=== PATIENT | female | born 2000 | race Caucasian/White ===

== ENCOUNTER 2024-09-07 00:52 | Emergency (ER) | payer OTHER ==
--- OUTSIDE RECORDS SUMMARY | 2024-09-07 00:56 | XMS REPORT | Continuity of Care Document ---
Author Name Unknown Address [address] [facility] [address] [place] [address] [facility] Address [address] [facility] [address] [place] [address] Care Team Providers Care Incinerator Operator Name Role Phone Cristian Miranda Primary Care Physician Kim Foster Attending Clinician Unava ilable Cristian Miranda Attending Clinician [phone] Aristides Swann Attending Clinician [phone] ARISTIDES SANCHEZ Attending Clinician RAMESH Lucio Attending Clinician Unavailyasmin hernandez Doctor Unassigned, [place] Attending Clinician U MYAH Ch Attending Clinician Unavailable Saroj Myah RUBIO Attending Clinician + [phone] IRVIN COUCH Attending Clinician CHUY Krishnamurthy Attending Clinician CHUY Nguyen Attending Clinician GURMEET Hanson Attending Clinician Kim Harrell Admitting Clinician Unava ilable Payers Payer Name Policy Type Policy Number Effective Date Expirati on Date Source Problems Condition Name Condition Details Condition Category Status Onset Date Resolution Date Last Treatment Date Treating Clinician Comments Source PCOS (polycysti c ovarian syndrome) PCOS (polycysti c ovarian syndrome) Disease Active 6-13 00:00: 00 [facility] No known active problems No known active problems Disease [facility] Allergies, Adverse Reactions, Alerts Allergy Name Allergy Type Status Severity Reaction(s) Onset Date Inactive Date Treating Clinician Comments Source SULFA (SULFONA MIDE ANTIBIOT ICS) Drug Class Active Other-Cmnt 4-15 00:00: 00 [facility] Sulfa (Sulfona mide Antibiot ics) Drug Allergy Active Other - See comments -15 00:00: 00 [facility] ERYTHROM YCIN DRUG Active Hives 9-20 00:00: 00 [facility] Azithrom ycin Propensi ty to adverse reaction s Active Hives 0 9-20 00:00: 00 [facility] Erythrom ycin Propensi ty to adverse reaction s Active Hives 0 9-20 00:00: 00 [facility] AZITHROM YCIN DRUG INGREDI Active Hives 0 9-20 00:00: 00 [facility] NO KNOWN ALLERGIE S Drug Class Active [facility] Social History Social Habit Start Date Stop Date Quantity Comments [facility] 2024-01-13 00:00:00 2024-01-13 00:00:00 Ex-drinker (finding) [facility] History of Social function 2024-01-13 00:00:00 2024-01-13 00:00:00 [facility] Alcoholic beverage intake 2024-01-13 00:00:00 2024-01-13 00:00:00 Ex-drinker (finding) [facility] Exposure to SARS-CoV-2 (event) 2022-11-12 00:00:00 2022-11-22 14:28:00 Not sure [facility] Tobacco use and exposure 2022-11-12 00:00:00 2022-11-12 00:00:00 Smokeless tobacco non-user [facility] Sex assigned at 2000 00:00:00 2000 00:00:00 [facility] Smoking Status Start Date Stop Date Source Never smoked tobacco [facility] Medications Ordered Medication Name Filled Medication Name Start Date Stop Date Current Medication? Ordering Clinician Indication Dosage Frequency Signature (SIG) Comments Components Source SPIRONOLACT ONE 100 mg tablet 02-09 00:00: 00 Yes [id number] TAKE ONE TABLET BY MOUTH IN THE MORNING [facility] norgestimat e-ethinyl estradioL 0.25-35 mg-mcg per tablet 01-20 00:00: 00 Yes 1{tbl} Take 1 tablet by mouth in the morning. [facility] levonorgest rel-ethinyl estradiol 0.1-20 mg-mcg per tablet 01-12 00:00: 00 01-20 00:00 :00 No [id number] 1{tbl} Take 1 tablet by mouth in the morning. [facility] fluticasone propionate 50 mcg/actuati on nasal spray 11-11 00:00: 00 Yes [facility] predniSONE 20 mg tablet 11-11 00:00: 00 Yes [facility] buPROPion XL 150 mg 24 hr tablet 2022-09 00:00: 00 Yes [id number] Take 2 tablets po daily [facility] spironolact one 100 mg tablet 2022-09 00:00: 00 02-09 00:00 :00 No [id number] 100mg Take 1 tablet by mouth in the morning. [facility] spironolact one 100 mg tablet 11-22 00:00: 00 08-07 00:00 :00 No [id number] 100mg Take 1 tablet by mouth in the morning. [facility] buPROPion XL 150 mg 24 hr tablet 11-22 00:00: 00 08-07 00:00 :00 No [id number] Take 2 tablets po daily [facility] nystatin-tr iamcinolone cream 11-12 00:00: 00 Yes [id number] Apply to area(s) 2 (two) times daily. [facility] medroxyPROG ESTERone (PROVERA) 10 mg tablet 11-12 00:00: 00 11-23 05:59 :00 No [id number] 10mg Take 1 tablet by mouth in the morning for 10 days. [facility] cephALEXin 500 mg capsule 11-12 00:00: 00 11-20 05:59 :00 No [id number] 500mg Take 1 capsule by mouth 4 (four) times daily for 7 days. [facility] amoxicillin -clavulanat e 875-125 mg per tablet 10-29 00:00: 00 Yes 1{tbl} Take 1 tablet by mouth in the morning and 1 tablet in the evening. [facility] naproxen 500 mg tablet 10-29 00:00: 00 Yes 500mg Take 500 mg by mouth in the morning and 500 mg in the evening. [facility] buPROPion XL 150 mg 24 hr tablet 10-16 00:00: 00 11-22 00:00 :00 No [id number] Take 2 tablets po daily [facility] codeine-gua ifenesin 10-100 mg/5 mL oral solution 2021-09 00:00: 00 Yes TAKE ONE TEASPOONFU L BY MOUTH EVERY EIGHT HOURS NEEDED for cough. [facility] predniSONE 50 mg tablet 2021-09 00:00: 00 01-12 00:00 :00 No 50mg Take 50 mg by mouth in the morning. [facility] spironolact one 100 mg tablet 2021-09 00:00: 00 11-22 00:00 :00 No [id number] 100mg Take 1 tablet by mouth in the morning. [facility] buPROPion XL 150 mg 24 hr tablet 2021-09 00:00: 00 10-14 00:00 :00 No [id number] Take 2 tablets po daily [facility] buPROPion 100 mg tablet 06-19 13:35: 04 06-19 00:00 :00 No 100mg Take 100 mg by mouth in the morning and 100 mg in the evening. [facility] spironolact one 100 mg tablet 06-19 00:00: 00 09-10 00:00 :00 No [id number] 100mg Take 1 tablet by mouth in the morning. [facility] buPROPion SR 150 mg SR tablet 06-19 00:00: 00 07-20 04:59 :00 No [id number] 150mg Take 1 tablet by mouth in the morning and 1 tablet in the evening. Do all this for 30 days. [facility] spironolact one 100 mg tablet 05-21 00:00: 00 06-19 00:00 :00 No [facility] Immunizations Ordered Immunization Name Filled Immunization Name Date Status Comments Source HPV9 2022-06-19 00:00:00 Completed [facility] HPV9 2022-06-19 00:00:00 Completed [facility] 2022-06-19 00:00:00 Completed [facility] 2022-06-19 00:00:00 Completed [facility] 2022-06-19 00:00:00 Completed [facility] HPV9 2022-06-19 00:00:00 Completed [facility] 2022-06-19 00:00:00 Completed [facility] HPV9 2022-06-19 00:00:00 Completed [facility] HPV9 2022-06-19 00:00:00 Completed [facility] HPV9 2022-06-19 00:00:00 Completed [facility] HPV9 2022-06-19 00:00:00 Completed [facility] HPV9 2022-06-19 00:00:00 Completed [facility] HPV9 2020-12-12 00:00:00 Completed [facility] HPV9 2020-12-12 00:00:00 Completed [facility] HPV9 2020-12-12 00:00:00 Completed [facility] SARS-COV-2 COVID-19 VACCINE - (MODERNA) 2020-10-26 00:00:00 Completed [facility] SARS-COV-2 COVID-19 VACCINE - (MODERNA) 2020-10-26 00:00:00 Completed [facility] SARS-COV-2 COVID-19 VACCINE - (MODERNA) 2020-10-26 00:00:00 Completed [facility] SARS-COV-2 COVID-19 VACCINE - (MODERNA) 2020-09-28 00:00:00 Completed [facility] SARS-COV-2 COVID-19 VACCINE - (MODERNA) 2020-09-28 00:00:00 Completed [facility] SARS-COV-2 COVID-19 VACCINE - (MODERNA) 2020-09-28 00:00:00 Completed [facility] Flu Whole Virus 2013-07-15 00:00:00 Completed [facility] Flu Whole Virus 2013-07-15 00:00:00 Completed [facility] Flu Whole Virus 2013-07-15 00:00:00 Completed [facility] Varicella (varivax)(chicken pox) 2012-05-16 00:00:00 Completed [facility] Varicella (varivax)(chicken pox) 2012-05-16 00:00:00 Completed [facility] Varicella (varivax)(chicken pox) 2012-05-16 00:00:00 Completed [facility] Meningococcal Polysaccharide (groups A, C, Y and W-135) conjugate vaccine (MCV4P) 2011-05-07 00:00:00 Completed [facility] TDAP 2011-05-07 00:00:00 Completed [facility] Meningococcal Polysaccharide (groups A, C, Y and W-135) conjugate vaccine (MCV4P) 2011-05-07 00:00:00 Completed [facility] TDAP 2011-05-07 00:00:00 Completed [facility] Meningococcal Polysaccharide (groups A, C, Y and W-135) conjugate vaccine (MCV4P) 2011-05-07 00:00:00 Completed [facility] TDAP 2011-05-07 00:00:00 Completed [facility] DTaP, Unspecified Formulation 2004-11-09 00:00:00 Completed [facility] MMR 2004-11-09 00:00:00 Completed [facility] IPV 2004-11-09 00:00:00 Completed [facility] DTaP, Unspecified Formulation 2004-11-09 00:00:00 Completed [facility] MMR 2004-11-09 00:00:00 Completed [facility] IPV 2004-11-09 00:00:00 Completed [facility] DTaP, Unspecified Formulation 2004-11-09 00:00:00 Completed [facility] MMR 2004-11-09 00:00:00 Completed [facility] IPV 2004-11-09 00:00:00 Completed [facility] HEPATITIS A 2003-04-13 00:00:00 Completed [facility] HEPATITIS A 2003-04-13 00:00:00 Completed [facility] HEPATITIS A 2003-04-13 00:00:00 Completed [facility] HEPATITIS A 2002-03-10 00:00:00 Completed [facility] HEPATITIS A 2002-03-10 00:00:00 Completed [facility] HEPATITIS A 2002-03-10 00:00:00 Completed [facility] MMR 2000-12-10 00:00:00 Completed [facility] IPV 2000-12-10 00:00:00 Completed [facility] Varicella (varivax)(chicken pox) 2000-12-10 00:00:00 Completed [facility] MMR 2000-12-10 00:00:00 Completed [facility] IPV 2000-12-10 00:00:00 Completed [facility] Varicella (varivax)(chicken pox) 2000-12-10 00:00:00 Completed [facility] MMR 2000-12-10 00:00:00 Completed [facility] IPV 2000-12-10 00:00:00 Completed [facility] Varicella (varivax)(chicken pox) 2000-12-10 00:00:00 Completed [facility] Hep B, Adol or Pedi Dosage 2000-10-12 00:00:00 Completed [facility] Hep B, Adol or Pedi Dosage 2000-10-12 00:00:00 Completed [facility] Hep B, Adol or Pedi Dosage 2000-10-12 00:00:00 Completed [facility] DTP 2000-06-24 00:00:00 Completed [facility] Hep B, Adol or Pedi Dosage 2000-06-24 00:00:00 Completed [facility] HIB 3 Dose Schedule 2000-06-24 00:00:00 Completed [facility] DTP 2000-06-24 00:00:00 Completed [facility] Hep B, Adol or Pedi Dosage 2000-06-24 00:00:00 Completed [facility] HIB 3 Dose Schedule 2000-06-24 00:00:00 Completed [facility] DTP 2000-06-24 00:00:00 Completed [facility] Hep B, Adol or Pedi Dosage 2000-06-24 00:00:00 Completed [facility] HIB 3 Dose Schedule 2000-06-24 00:00:00 Completed [facility] DTP 2000-04-30 00:00:00 Completed [facility] HIB 3 Dose Schedule 2000-04-30 00:00:00 Completed [facility] IPV 2000-04-30 00:00:00 Completed [facility] DTP 2000-04-30 00:00:00 Completed [facility] HIB 3 Dose Schedule 2000-04-30 00:00:00 Completed [facility] IPV 2000-04-30 00:00:00 Completed [facility] DTP 2000-04-30 00:00:00 Completed [facility] HIB 3 Dose Schedule 2000-04-30 00:00:00 Completed [facility] IPV 2000-04-30 00:00:00 Completed [facility] DTP 2000-03-04 00:00:00 Completed [facility] HIB 3 Dose Schedule 2000-03-04 00:00:00 Completed [facility] IPV 2000-03-04 00:00:00 Completed [facility] DTP 2000-03-04 00:00:00 Completed [facility] HIB 3 Dose Schedule 2000-03-04 00:00:00 Completed [facility] IPV 2000-03-04 00:00:00 Completed [facility] DTP 2000-03-04 00:00:00 Completed [facility] HIB 3 Dose Schedule 2000-03-04 00:00:00 Completed [facility] IPV 2000-03-04 00:00:00 Completed [facility] Hep B, Adol or Pedi Dosage 1999 00:00:00 Completed [facility] Hep B, Adol or Pedi Dosage 1999 00:00:00 Completed [facility] Hep B, Adol or Pedi Dosage 1999 00:00:00 Completed [facility] HPV9 Unknown Completed [facility] SARS-COV-2 COVID-19 VACCINE - (MODERNA) Unknown Completed [facility] DTaP, Unspecified Formulation Unknown Completed [facility] DTP Unknown Completed [facility] Flu Whole Virus Unknown Completed [facility] HEPATITIS A Unknown Completed [facility] Hep B, Adol or Pedi Dosage Unknown Completed [facility] HIB 3 Dose Schedule Unknown Completed [facility] Meningococcal Polysaccharide (groups A, C, Y and W-135) conjugate vaccine (MCV4P) Unknown Completed [facility] MMR Unknown Completed [facility] IPV Unknown Completed [facility] TDAP Unknown Completed [facility] Varicella (varivax)(chicken pox) Unknown Completed [facility] HPV9 Unknown Completed [facility] SARS-COV-2 COVID-19 VACCINE - (MODERNA) Unknown Completed [facility] DTaP, Unspecified Formulation Unknown Completed [facility] DTP Unknown Completed [facility] Flu Whole Virus Unknown Completed [facility] HEPATITIS A Unknown Completed [facility] Hep B, Adol or Pedi Dosage Unknown Completed [facility] HIB 3 Dose Schedule Unknown Completed [facility] Meningococcal Polysaccharide (groups A, C, Y and W-135) conjugate vaccine (MCV4P) Unknown Completed [facility] MMR Unknown Completed [facility] IPV Unknown Completed [facility] TDAP Unknown Completed [facility] Varicella (varivax)(chicken pox) Unknown Completed [facility] HPV9 Unknown Completed [facility] SARS-COV-2 COVID-19 VACCINE - (MODERNA) Unknown Completed [facility] DTaP, Unspecified Formulation Unknown Completed [facility] DTP Unknown Completed [facility] Flu Whole Virus Unknown Completed [facility] HEPATITIS A Unknown Completed [facility] Hep B, Adol or Pedi Dosage Unknown Completed [facility] HIB 3 Dose Schedule Unknown Completed [facility] Meningococcal Polysaccharide (groups A, C, Y and W-135) conjugate vaccine (MCV4P) Unknown Completed [facility] MMR Unknown Completed [facility] IPV Unknown Completed [facility] TDAP Unknown Completed [facility] Varicella (varivax)(chicken pox) Unknown Completed [facility] HPV9 Unknown Completed [facility] SARS-COV-2 COVID-19 VACCINE - (MODERNA) Unknown Completed [facility] DTaP, Unspecified Formulation Unknown Completed [facility] DTP Unknown Completed [facility] Flu Whole Virus Unknown Completed [facility] HEPATITIS A Unknown Completed [facility] Hep B, Adol or Pedi Dosage Unknown Completed [facility] HIB 3 Dose Schedule Unknown Completed [facility] Meningococcal Polysaccharide (groups A, C, Y and W-135) conjugate vaccine (MCV4P) Unknown Completed [facility] MMR Unknown Completed [facility] IPV Unknown Completed [facility] TDAP Unknown Completed [facility] Varicella (varivax)(chicken pox) Unknown Completed [facility] HPV9 Unknown Completed [facility] SARS-COV-2 COVID-19 VACCINE - (MODERNA) Unknown Completed [facility] DTaP, Unspecified Formulation Unknown Completed [facility] DTP Unknown Completed [facility] Flu Whole Virus Unknown Completed [facility] HEPATITIS A Unknown Completed [facility] Hep B, Adol or Pedi Dosage Unknown Completed [facility] HIB 3 Dose Schedule Unknown Completed [facility] Meningococcal Polysaccharide (groups A, C, Y and W-135) conjugate vaccine (MCV4P) Unknown Completed [facility] MMR Unknown Completed [facility] IPV Unknown Completed [facility] TDAP Unknown Completed [facility] Varicella (varivax)(chicken pox) Unknown Completed [facility] HPV9 Unknown Completed [facility] SARS-COV-2 COVID-19 VACCINE - (MODERNA) Unknown Completed [facility] DTaP, Unspecified Formulation Unknown Completed [facility] DTP Unknown Completed [facility] Flu Whole Virus Unknown Completed [facility]PATITIS A [facility], Adol or Pedi Dosage Unknown Completed [facility] HIB 3 Dose Schedule Unknown Completed [facility] Meningococcal Polysaccharide (groups A, C, Y and W-135) conjugate vaccine (MCV4P) Unknown Completed [facility] MMR Unknown Completed [facility] IPV Unknown Completed [facility] TDAP Unknown Completed [facility] Varicella (varivax)(chicken pox) Unknown Completed [facility] HPV9 Unknown Completed [facility] SARS-COV-2 COVID-19 VACCINE - (MODERNA) Unknown Completed [facility] DTaP, Unspecified Formulation Unknown Completed [facility] DTP Unknown Completed [facility] Flu Whole Virus Unknown Completed [facility] HEPATITIS A Unknown Completed [facility] Hep B, Adol or Pedi Dosage Unknown Completed [facility] HIB 3 Dose Schedule Unknown Completed [facility] Meningococcal Polysaccharide (groups A, C, Y and W-135) conjugate vaccine (MCV4P) Unknown Completed [facility] MMR Unknown Completed [facility] IPV Unknown Completed [facility] TDAP Unknown Completed [facility] Varicella (varivax)(chicken pox) Unknown Completed [facility] HPV9 Unknown Completed [facility] SARS-COV-2 COVID-19 VACCINE - (MODERNA) Unknown Completed [facility] DTaP, Unspecified Formulation Unknown Completed [facility] DTP Unknown Completed [facility] Flu Whole Virus Unknown Completed [facility] HEPATITIS A Unknown Completed [facility] Hep B, Adol or Pedi Dosage Unknown Completed [facility] HIB 3 Dose Schedule Unknown Completed [facility] Meningococcal Polysaccharide (groups A, C, Y and W-135) conjugate vaccine (MCV4P) Unknown Completed [facility] MMR Unknown Completed [facility] IPV Unknown Completed [facility] TDAP Unknown Completed [facility] Varicella (varivax)(chicken pox) Unknown Completed [facility] HPV9 Unknown Completed [facility] SARS-COV-2 COVID-19 VACCINE - (MODERNA) Unknown Completed [facility] DTaP, Unspecified Formulation Unknown Completed [facility] DTP Unknown Completed [facility] Flu Whole Virus Unknown Completed [facility] HEPATITIS A Unknown Completed [facility] Hep B, Adol or Pedi Dosage Unknown Completed [facility] HIB 3 Dose Schedule Unknown Completed [facility] Meningococcal Polysaccharide (groups A, C, Y and W-135) conjugate vaccine (MCV4P) Unknown Completed [facility] MMR Unknown Completed [facility] IPV Unknown Completed [facility] TDAP Unknown Completed [facility] Varicella (varivax)(chicken pox) Unknown Completed [facility] HPV9 Unknown Completed [facility] SARS-COV-2 COVID-19 VACCINE - (MODERNA) Unknown Completed [facility] DTaP, Unspecified Formulation Unknown Completed [facility] DTP Unknown Completed [facility] Flu Whole Virus Unknown Completed [facility] HEPATITIS A Unknown Completed [facility] Hep B, Adol or Pedi Dosage Unknown Completed [facility] HIB 3 Dose Schedule Unknown Completed [facility] Meningococcal Polysaccharide (groups A, C, Y and W-135) conjugate vaccine (MCV4P) Unknown Completed [facility] MMR Unknown Completed [facility] IPV Unknown Completed [facility] TDAP Unknown Completed [facility] Varicella (varivax)(chicken pox) Unknown Completed [facility] Vital Signs Vital Name Observation Time Observation Value Comments S ource Systolic blood pressure 2024-01-13 18:03:00 116 mm[Hg] [facility] Diastolic blood pressure 2024-01-13 18:03:00 72 mm[Hg] [facility] Heart rate 2024-01-13 18:03:00 89 /min [facility] Body temperature 2024-01-13 18:03:00 37.33 Pily [facility] Body height 2024-01-13 18:03:00 167.6 cm [facility] Body weight 2024-01-13 18:03:00 56.019 [facility] BMI 2024-01-13 18:03:00 19.93 kg/m2 [facility] Systolic blood pressure 2022-11-22 20:34:00 102 mm[Hg] [facility] Diastolic blood pressure 2022-11-22 20:34:00 68 mm[Hg] [facility] Heart rate 2022-11-22 20:34:00 95 /min Un[facility] Body temperature 2022-11-22 20:34:00 36.33 Pily [facility] Respiratory rate 2022-11-22 20:34:00 18 /min [facility] Body height 2022-11-22 20:34:00 167.6 cm [facility] Body weight 2022-11-22 20:34:00 57.153 kg [facility] BMI 2022-11-22 20:34:00 20.34 kg/m2 [facility] Oxygen saturation in Arterial blood by Pulse oximetry 2022-11-22 20:34:00 95 /min [facility] Systolic blood pressure 2022-11-12 17:05:00 113 mm[Hg] [facility] Diastolic blood pressure 2022-11-12 17:05:00 74 mm[Hg] [facility] Heart rate 2022-11-12 17:05:00 106 /min [facility] Body temperature 2022-11-12 17:05:00 35.89 Pily [facility] Body height 2022-11-12 17:05:00 167.6 cm [facility] Body weight 2022-11-12 17:05:00 57.788 kg [facility] BMI 2022-11-12 17:05:00 20.56 kg/m2 [facility] Systolic blood pressure 2022-09-04 16:40:00 115 mm[Hg] [facility] Diastolic blood pressure 2022-09-04 16:40:00 64 mm[Hg] [facility] Heart rate 2022-09-04 16:40:00 74 /min [facility] Body temperature 2022-09-04 16:40:00 35.56 Pily [facility] Respiratory rate 2022-09-04 16:40:00 18 /min [facility] Body height 2022-09-04 16:40:00 91.4 cm [facility] Body weight 2022-09-04 16:40:00 58.514 kg [facility] BMI 2022-09-04 16:40:00 69.98 kg/m2 [facility] Oxygen saturation in Arterial blood by Pulse oximetry 2022-09-04 16:40:00 99 /min [facility] Systolic blood pressure 2022-08-02 19:01:00 100 mm[Hg] [facility] Diastolic blood pressure 2022-08-02 19:01:00 67 mm[Hg] [facility] Heart rate 2022-08-02 19:01:00 90 /min [facility] Body temperature 2022-08-02 19:01:00 35.94 Pily [facility] Respiratory rate 2022-08-02 19:01:00 18 /min [facility] Body weight 2022-08-02 19:01:00 60.328 kg [facility] Oxygen saturation in Arterial blood by Pulse oximetry 2022-08-02 19:01:00 98 /min [facility] Systolic blood pressure 2022-06-19 18:04:00 105 mm[Hg] [facility] Diastolic blood pressure 2022-06-19 18:04:00 69 mm[Hg] [facility] Heart rate 2022-06-19 18:04:00 85 /min [facility] Body temperature 2022-06-19 18:04:00 36.17 Pily [facility] Respiratory rate 2022-06-19 18:04:00 16 /min [facility] Body weight 2022-06-19 18:04:00 57.607 kg [facility] Oxygen saturation in Arterial blood by Pulse oximetry 2022-06-19 18:04:00 99 /min [facility] Systolic blood pressure 2022-09-04 16:40:00 115 mm[Hg] [facility] Diastolic blood pressure 2022-09-04 16:40:00 64 mm[Hg] [facility] Heart rate 2022-09-04 16:40:00 74 /min [facility] Body temperature 2022-09-04 16:40:00 35.56 Pily [facility] Respiratory rate 2022-09-04 16:40:00 18 /min [facility] Body height 2022-09-04 16:40:00 91.4 cm [facility] Body weight 2022-09-04 16:40:00 58.514 kg [facility] BMI 2022-09-04 16:40:00 69.98 kg/m2 [facility] Oxygen saturation in Arterial blood by Pulse oximetry 2022-09-04 16:40:00 99 /min [facility] Procedures Procedure Date / Time Performed Performing Clinician Source REFERRAL- REQUEST/RESPONSE 2023-09-01 06:01:00 Doctor Unassigned, [place] [facility] GALV ONLY - VAGINAL PATHOGENS BY NUCLEIC ACID TESTING 2022-11-12 23:17:00 Myah Kyle [facility] AUTHORIZATION FOR RELEASE OF PHI 2022-11-12 06:01:00 Doctor Unassigned, [place] [facility] PATIENT INFORMATION 2022-09-17 06:01:00 Doctor Unassigned, [place] [facility] PATIENT INFORMATION 2022-09-17 06:01:00 Doctor Unassigned, [place] [facility] AUTHORIZATION FOR RELEASE OF PHI 2022-09-17 06:01:00 Doctor Unassigned, [place] [facility] VITAMIN D, 25-OH 2022-09-04 17:13:00 Gini Jarvis [facility] SEDIMENTATION RATE 2022-09-04 17:13:00 Twila Jarvis [facility] RHEUMATOID FACTOR 2022-09-04 17:13:00 Shawanda Jarvis [facility] POCT TEST 2022-09-04 16:59:00 Jayne Jarvis [facility] POCT TEST 2022-09-04 16:59:00 Jayne Jarvis [facility] CBC WITH DIFF 2022-06-19 19:17:00 Fabian Jarvis [facility] COMP. METABOLIC PANEL (09512) 2022-06-19 19:17:00 Ana [facility] THYROID STIMULATING HORMONE 2022-06-19 19:17:00 Ana [facility] GLYCOSYLATED HEMOGLOBIN (A1C) 2022-06-19 19:17:00 Ana [facility] LIPID PANEL (27680)(TOTAL CHOLESTEROL, TRIGLYCERIDES, HDL) 2022-06-19 19:17:00 Ana [facility] HCV ANTIBODY 2022-06-19 19:17:00 Ana [facility] THYROID STIMULATING HORMONE 2022-06-19 19:17:00 Ana [facility] COMP. METABOLIC PANEL (76645) 2022-06-19 19:17:00 Ana [facility] LIPID PANEL (15404)(TOTAL CHOLESTEROL, TRIGLYCERIDES, HDL) 2022-06-19 19:17:00 Ana [facility] CBC WITH DIFF 2022-06-19 19:17:00 Fabian Jarvis [facility] GLYCOSYLATED HEMOGLOBIN (A1C) 2022-06-19 19:17:00 Ana [facility] HCV ANTIBODY 2022-06-19 19:17:00 Ana [facility] GARDASIL 9 (HPV 9V) VACCINE 2022-06-19 18:26:38 Ana [facility] GARDASIL 9 (HPV 9V) VACCINE 2022-06-19 18:26:38 Jarvis [facility] Encounters Start Date/Time End Date/Time Encounter Type Admission Type Attending [facility] Care Facility Care Department Encounter ID Source 2024-06-18 08:31:00 2024-06-18 08:31:00 Outpatient Kim Hoang [facility] [id number] [facility] 2024-02-08 00:00:00 2024-02-10 08[facility]36[facility] 1.840.114 350.1.13.10 4.2.7.2.686 [id number] [facility] 2024-01-21 00:00:00 2024-01-21 00:00:00 Patient Secure Msg Aristides Sanchez [facility] 1.840.114 350.1.13.10 4.2.7.2.686 [id number] [facility] 2024-01-13 13:00:00 2024-01-13 13:29:31 Outpatient R ARISTIDES SANCHEZ [facility] [id number] [facility] 2024-01-13 13:00:00 2024-01-13 13:29:31 Office Visit Aristides Sanchez [facility] 1.840.114 350.1.13.10 4.2.7.2.686 [id number] [facility] 2023-11-10 00:00:00 2023-11-10 00:00:[address] [facility] 1.84.114 350.1.13.10 4.2.7.2.686 [id number] [facility] 2023-10-03 13:30:00 2023-10-03 13:30:00 Outpatient RAMESH TORRES [facility] [id number] [facility] 2023-09-03 00:00:00 2023-09-03 00:00:00 Patient Secure Msg Doctor Unassigned, [place] [facility] 1.2.840.114 350.1.13.10 4.2.7.2.686 [id number] [facility] 2023-09-01 00:00:00 2023-09-01 00:00:00 Orders Only Doctor Unassigned, [place] [facility] 1.2.840.114 350.1.13.10 4.2.7.2.686 [id number] [facility] 2023-08-07 00:00:00 2023-08-07 [facility]:00[facility] 1.2.840.114 350.1.13.10 4.2.7.2.686 [id number] [facility] 2023-08-07 00:00:00 2023-08-07 00:00[facility] 1.2.840.114 350.1.13.10 4.2.7.2.686 [id number] [facility] 2023-05-22 11:00:00 2023-05-22 11:00:00 [id number] 2022-11-22 14:30:00 2022-11-22 15:15:06 [id number] 2022-11-22 14:30:00 2022-11-22 15:15:06 Office Visit [facility] 1.2840.114 350.1.13.10 4.2.7.2.686 [id number] [facility] 2022-11-12 11:30:00 2022-11-12 11:44:29 Outpatient MYAH ZARAGOZA [facility] [id number] [facility] 2022-11-12 11:30:00 2022-11-12 11:44:29 Office Visit Myah Kyle [facility] 1.2.840.114 350.1.13.10 4.2.7.2.686 [id number] [facility] 2022-11-12 00:00:00 2022-11-12 00:00:00 Orders Only Doctor Unassigned, [place] [facility] 1.2.840.114 350.1.13.10 4.2.7.2.686 [id number] [facility] 2022-10-16 09:00:00 2022-10-16 09:52:53 Outpatient CHUY [facility]ANDRA [facility] [id number] [facility] 2022-10-16 00:00:00 2022-10-16 00:00:00 Travel 1.2.840.1 [id number] 3.104.2.7 .3.880385 .8 1.2.840.114 350.1.13.10 4.2.7.3.698 [id number] [facility] 2022-10-14 00:00:00 2022-10-14 00:00:00 Refill Doctor Unassigned, [place] 1.2.840.1 [id number] 3.104.2.7 .3.215105 .8 [id number] [facility] 2022-09-21 13:00:00 2022-09-21 13:00:00 Outpatient GURMEET CARSON [facility] [id number] [facility] 2022-09-17 10:00:00 2022-09-17 10:56:50 Outpatient CHUY CHANDRA MARK [facility] [id number] [facility] 2022-09-17 00:00:00 2022-09-17 00:00:00 Travel 1.2.840.1 82542.1.1 3.104.2.7 .3.124151 .8 1.2.840.114 350.1.13.10 4.2.7.3.698 084.8 [id number] [facility] 2022-09-17 00:00:00 2022-09-17 00:00:00 Orders Only Doctor Unassigned, [place] 1.2.840.1 83181.1.1 3.104.2.7 .3.849859 .8 [id number] [facility] 2022-09-10 00:00:00 2022-09-10 00:00:00 Refill Doctor Unassigned, [place] 1.2.840.1 54767.1.1 3.104.2.7 .3.029044 .8 [id number] [facility] 2022-09-09 00:00:00 2022-09-09 00:00:00 Refill Cristian Jarvis 1.2.840.1 17221.1.1 3.104.2.7 .3.653622 .8 [id number] [facility] 2022-09-04 11:00:00 2022-09-04 11:30:00 Office Visit Cristian Jarvis 1.2.840.1 27596.1.1 3.104.2.7 .3.090648 .8 [id number] [facility] 2022-09-04 11:00:00 2022-09-04 11:00:00 Outpatient R CRISTIAN JARVIS [facility] [id number] [facility] 2022-09-04 00:00:00 2022-09-04 00:00:00 Travel 1.2.840.1 [id number] 3.104.2.7 .3.082359 .8 1.2.840.114 350.1.13.10 4.2.7.3.698 084.8 [id number] [facility] 2022-08-13 00:00:00 2022-08-13 00:00:00 Patient Secure Msg Doctor Unassigned, [place] [facility] 1.2.840.114 350.1.13.10 4.2.7.2.686 [id number] [facility] 2022-08-03 00:00:00 2022-08-03 00:00:00 Telephone Cristian Jarvis 1.2.840.1 01881.1.1 3.104.2.7 .3.876159 .8 [id number] [facility] 2022-08-02 14:00:00 2022-08-02 14:28:32 Outpatient R CRISTIAN JARVIS [facility] [id number] [facility] 2022-08-02 14:00:00 2022-08-02 14:28:32 Office Visit Cristian Jarvis 1.2.840.1 51241.1.1 3.104.2.7 .3.015178 .8 [id number] [facility] 2022-08-02 00:00:00 2022-08-02 00:00:00 Travel 1.2.840.1 30891.1.1 3.104.2.7 .3.650656 .8 1.2.840.114 350.1.13.10 4.2.7.3.698 084.8 [id number] [facility] 2022-07-11 00:00:00 2022-07-11 00:00:00 Patient Secure Msg Doctor Unassigned, [place] [facility] 1.2.840.114 350.1.13.10 4.2.7.2.686 [id number] [facility] 2022-06-19 13:00:00 2022-06-19 13:56:11 Office Visit Cristian Jarvis 1.2.840.1 00084.1.1 3.104.2.7 .3.221905 .8 [id number] [facility] 2022-06-19 13:00:00 2022-06-19 13:56:11 Outpatient CRISTIAN TROY [facility] [id number] [facility] 2022-06-19 00:00:00 2022-06-19 00:00:00 Travel 1.2.840.1 21123.1.1 3.104.2.7 .3.416670 .8 1.2.840.114 350.1.13.10 4.2.7.3.698 084.8 [id number] [facility] Results Test Description Test Time Test Comments Results Result Co mments Source [facility] [id number] 16:59:00* Test Item Value Reference Range Interpretation Comme nts POCT PREG (test code = 1605) Negative On board controls acceptable with C Line (test code = 3574) Yes POCT PREG LOT # (test code = 3575) POCT PREG TEST DATE ( test code = 3576) Lab Interpretation (test cod e = 96813-9) Normal [facility] [id number] 16:59:00* Test Item Value Reference Range Interpretation Comme nts POCT PREG (test code = 1605) Negative On board controls acceptable with C Line (test code = 3574) Yes POCT PREG LOT # (test code = 3575) POCT PREG TEST DATE ( test code = 3576) Lab Interpretation (test cod e = 26900-0) Normal [facility] [id number] 16:59:00* Test Item Value Reference Range Interpretation Comme nts POCT PREG (test code = 1605) Negative On board controls acceptable with C Line (test code = 3574) Yes POCT PREG LOT # (test code = 3575) POCT PREG TEST DATE ( test code = 3576) Lab Interpretation (test cod e = 16896-8) Normal [facility] [id number] 16:59:00* Test Item Value Reference Range Interpretation Comme nts POCT PREG (test code = 1605) Negative On board controls acceptable with C Line (test code = 3574) Yes POCT PREG LOT # (test code = 3575) POCT PREG TEST DATE ( test code = 3576) Lab Interpretation (test cod e = 11756-8) [id number] 16:59:00* Test Item Value Reference Range Interpretation Comme nts POCT PREG (test code = 1605) Negative On board controls acceptable with C Line (test code = 3574) Yes POCT PREG LOT # (test code = 3575) POCT PREG TEST DATE ( test code = 3576) Lab Interpretation (test cod e = 91237-2) Normal [facility]
[2024-09-07] MEDS ORDERED: NA CHLORIDE 0.9% 1,000 ML ONE (00:57)
[2024-09-07] MEDS ORDERED: FAMOTIDINE 20 MG/2 ML VIAL IV ONE (00:57)
[2024-09-07] MEDS ORDERED: METHYLPREDNISOLONE 125 MG INJ ONE (00:57)
[2024-09-07] MEDS ORDERED: DIPHENHYDRAMINE 50 MG/ML VIAL ONE (00:57)
--- NOTE | 2024-09-07 02:11 | EDPHYS ---
Physician Documentation [facility] Name: Maylin Iqbal Age: 23 yrs Sex: Female : 2000 Arrival Date: 09/07/2024 Time: 00:52 Bed DX3 Private MD: ED Physician Silverio De Guzman HPI: 09/07 02:23 This 23 yrs old Female presents to ER via Unassigned with complaints of ec2 Allergic Reaction. 02:23 Patient arrives today due to concern for allergic reaction. Had some splotchiness to ec2 her skin as well as throat tightness. No fevers or chills, no nausea or vomiting, reports no known allergies or no new medications, no new allergens.. Historical: - Allergies: 03:04 No Known Allergies; vc1 - Home Meds: 03:04 None [Active]; vc1 - PMHx: 03:04 None; vc1 - PSHx: 03:04 None; vc1 - Immunization history:: Client reports having NOT received the Covid vaccine. - Infectious Disease History:: Denies. - Social history:: Smoking status: Patient denies any tobacco usage or history of. ROS: 02:23 Constitutional: as per hpi ec2 Exam: 02:23 Constitutional: GEN: NAD Head: atraumatic Eyes: EOMI Ears: External ears are ec2 normal. CV: regular rate LUNGS: no respiratory distress, no wheezes or rales or rhonchi. ABD: non-distended SKIN: no evidence of rashes no erythema noted. MSK: no evidence of trauma Vital Signs: 00:54 BP 127 / 80; Pulse 96; Resp 18; Temp 98.6; Pulse Ox 100% on R/A; Weight 58.97 kg; rv1 Height 5 ft. 6 in. ; 00:54 Body Mass Index 20.98 (58.97 kg, 167.64 cm) rv1 MDM: 01:05 Medical Screening Exam initiated dr5 02:23 Data reviewed: vital signs, nurses notes. ED course: Patient arrives today for ec2 evaluation of an allergic reaction. Examination is revealing for well-appearing nontoxic individual. Patient received Solu-Medrol, Benadryl as well as Pepcid and crystalloid. On reassessment patient is well-appearing no acute distress. Will prescribe the patient EpiPen and have her follow-up PCP. Return precautions given. Differential diagnoses considered include cellulitis, anaphylaxis, allergic reaction. Administered Medications: 01:05 Drug: NS 0.9% IV 1000 ml IV at 1000 ml once; to be given as a bolus over 60 minutes vc1 Route: IV; Rate: 1000 ml; Site: right antecubital; 01:05 Drug: diphenhydrAMINE IVP 25 mg IVP once Route: IVP; Site: right antecubital; vc1 01:05 Drug: Famotidine IVP 20 mg IVP once; dilute with 10 mL 0.9% NaCl; give over 2 minutes vc1 Route: IVP; Site: right antecubital; 01:05 Drug: MethylPrednisoLONE IVP 125 mg IVP once Route: IVP; Site: right antecubital; vc1 02:36 Drug: Decadron - Dexamethasone IVP 10 mg IVP once Route: IVP; Site: right antecubital; vc1 Disposition Summary: 09/07/24 02:11 Discharge Ordered Notes: Location: Home ec2 Condition: Stable ec2 Diagnosis - Allergic urticaria ec2 Followup: ec2 - With: Private Physician - When: - Reason: Re-evaluation by your physician Discharge Instructions: - Discharge Summary Sheet ec2 - Hives ec2 Forms: - Medication Reconciliation Form ec2 - Antibiotic Education ec2 - Prescription Opioid Use ec2 - Patient Portal Instructions ec2 - Leadership Thank You Letter ec2 Prescriptions: - EpiPen 0.3 mg/0.3 mL Injection Auto-Injector - administer 0.3 milligram INTRAMUSCULAR route every 5 to 15 minutes as needed ec2 for hypersensitivity reaction; do not exceed 2 doses per episode; 2 unit; Refills: 0, Product Selection Permitted Signatures: Chelsea Leonardo RN RN vc1 Silverio De Guzman MD MD ec2 [place] Can, OFFICER LIEUTENANT-C OFFICER LIEUTENANT-Cdr5
--- NOTE | 2024-09-07 02:11 | ER ---
Nurse's Notes [facility] Name: Maylin Iqbal Age: 23 yrs Sex: Female : 2000 Arrival Date: 09/07/2024 Time: 00:52 Bed DX3 Private MD: Diagnosis: Allergic urticaria Presentation: 09/07 01:00 Chief complaint: Chief complaint: Patient states: I'M HAVING AN ALLERGIC REACTION, I vc1 HAVE A RASH AND I'M HAVING TROUBLE BREATHING. 01:00 Method Of Arrival: Ambulatory vc1 01:00 Coronavirus screen: Client denies travel out of the [place] in the last 14 days. At this vc1 time, the client does not indicate any symptoms associated with coronavirus-19. Ebola Screen: Patient negative for fever greater than or equal to 101.5 degrees Fahrenheit, and additional compatible Ebola Virus Disease symptoms Patient denies exposure to infectious person. Patient denies travel to an Ebola-affected area in the 21 days before illness onset. No symptoms or risks identified at this time. Onset: The symptoms/episode began/occurred acutely, suddenly. Anaphylaxis evaluation, the patient reports or I have noted the following symptoms which indicate a significant risk of anaphylaxis: no signs or symptoms of anaphylaxis were noted. Initial Sepsis Screen: Does the patient meet any 2 criteria? No. Patient's initial sepsis screen is negative. Does the patient have a suspected source of infection? No. Patient's initial sepsis screen is negative. Risk Assessment: Do you want to hurt yourself or someone else? Patient reports no desire to harm self or others. Onset of symptoms was September 07, 2024. 01:00 Acuity: MOHAN 2 vc1 Triage Assessment: 01:00 General: Appears uncomfortable, Behavior is cooperative, anxious. Pain: Denies pain. vc1 EENT: No deficits noted. No signs and/or symptoms were reported regarding the EENT system. Neuro: Level of Consciousness is awake, alert, obeys commands, Oriented to person, place, time, situation, Appropriate for age. Cardiovascular: Heart tones S1 S2 present Capillary refill < 3 seconds Patient's skin is warm and dry. Respiratory: Reports shortness of breath Airway is patent Respiratory effort is even, unlabored, Respiratory pattern is regular, symmetrical. GI: No deficits noted. No signs and/or symptoms were reported involving the gastrointestinal system. : No deficits noted. No signs and/or symptoms were reported regarding the genitourinary system. Derm: Skin is intact, is healthy with good turgor, Skin is dry, Skin is normal, Skin temperature is warm. Musculoskeletal: Circulation, motion, and sensation intact. Range of motion: intact in all extremities. Historical: - Allergies: 03:04 No Known Allergies; vc1 - Home Meds: 03:04 None [Active]; vc1 - PMHx: 03:04 None; vc1 - PSHx: 03:04 None; vc1 - Immunization history:: Client reports having NOT received the Covid vaccine. - Infectious Disease History:: Denies. - Social history:: Smoking status: Patient denies any tobacco usage or history of. Screenin:05 [facility] ED Fall Risk Assessment (Adult) History of falling in the last 3 months, vc1 including since admission No falls in past 3 months (0 pts) Confusion or Disorientation No (0 pts) Intoxicated or Sedated No (0 pts) Impaired Gait No (0 pts) Mobility Assist Device Used No (0 pt) Altered Elimination No (0 pt) Score/Fall Risk Level 0 - 2 = Low Risk Oriented to surroundings, Maintained a safe environment, Educated pt \T\ family on fall prevention, incl call for assistance when getting out of bed. Abuse screen: Denies threats or abuse. Nutritional screening: No deficits noted. Tuberculosis screening: No symptoms or risk factors identified. Vital Signs: 00:54 BP 127 / 80; Pulse 96; Resp 18; Temp 98.6; Pulse Ox 100% on R/A; Weight 58.97 kg; rv1 Height 5 ft. 6 in. ; 00:54 Body Mass Index 20.98 (58.97 kg, 167.64 cm) rv1 ED Course: 00:54 Patient arrived in ED. rv1 01:00 [place] [facility]00 SEEN IN DIAGNOSTIC CHAIR. Provided Education on: EPI PEN. vc1 01:04 Chelsea Leonardo RN is Primary Nurse. vc1 01:56 Silverio De Guzman MD is Attending Physician. ec2 03:04 Triage completed. vc1 03:08 No provider procedures requiring assistance completed. IV discontinued, intact, vc1 bleeding controlled, No redness/swelling at site. Pressure dressing applied. Administered Medications: 01:05 Drug: NS 0.9% IV 1000 ml IV at 1000 ml once; to be given as a bolus over 60 minutes vc1 Route: IV; Rate: 1000 ml; Site: right antecubital; 01:05 Drug: diphenhydrAMINE IVP 25 mg IVP once Route: IVP; Site: right antecubital; vc1 01:05 Drug: Famotidine IVP 20 mg IVP once; dilute with 10 mL 0.9% NaCl; give over 2 minutes vc1 Route: IVP; Site: right antecubital; 01:05 Drug: MethylPrednisoLONE IVP 125 mg IVP once Route: IVP; Site: right antecubital; vc1 02:36 Drug: Decadron - Dexamethasone IVP 10 mg IVP once Route: IVP; Site: right antecubital; vc1 Medication: 03:07 VIS not applicable for this client. vc1 Outcome: 02:11 Discharge ordered by . ec2 03:09 Patient left the ED. vc1 Signatures: Chelsea Leonardo RN RN vc1 Simona Berkowitz rv1 Silverio De Guzman MD MD ec2 [place] Can, CHECKER-C CHECKER-Cdr5
[2024-09-07] MEDS ORDERED: dexAMETHasone 10 MG/ML VIAL ONE (02:27)
[2024-09-07 08:49] VITALS: BP 127/80; TEMP 98.6; O2SAT 100
== END 2024-09-07 03:09 | disposition home or self-care (01) ==
LOC: ER 00:52
DX: L50.0 Allergic urticaria (principal); Z28.310 Unvaccinated for COVID-19
CPT/HCPCS: 96375; 96374; 99284; J1200; J1100; J2919; J7030